=== PATIENT | female | born 1945 | race Caucasian/White ===

== ENCOUNTER 2018-11-16 13:45 | Outpatient (CLI) | payer MEDICARE, MEDICAID | END 2018-11-16 23:59 | disposition home health service (06) | LOC: WOU 13:45 | PROVIDERS: ATTEND Surgery | PROC: 0HB1XZX Excision of Face Skin, External Approach, Diagnostic (ICD-10-PCS; principal; 2018-11-16) | DX: L03.213 Periorbital cellulitis (principal); R22.0 Localized swelling, mass and lump, head; R26.2 Difficulty in walking, not elsewhere classified; R29.3 Abnormal posture; I48.91 Unspecified atrial fibrillation; M81.0 Age-related osteoporosis without current pathological fracture; G40.909 Epilepsy, unspecified, not intractable, without status epilepticus; E03.9 Hypothyroidism, unspecified; Z86.718 Personal history of other venous thrombosis and embolism; Z79.899 Other long term (current) drug therapy | CPT/HCPCS: 11106; 88305; A6402; J3490 ==

== ENCOUNTER 2018-12-13 16:31 | Inpatient (IN) | payer MEDICARE, MEDICAID ==
[~2018-12-13] VITALS: Ht 177.8 cm; Wt 88.5 kg
[2018-12-13 16:55] LABS: BASOPHILS % (AUTO) 0.7 % (0.0-2.0); EOSINOPHILS % (AUTO) 3.9 % (0.0-6.0); HEMATOCRIT 41 % (33-45); HEMOGLOBIN 13.6 g/dL (11.5-14.8); LYMPHOCYTES # (AUTO) 1.2 /CMM (0.8-4.8); LYMPHOCYTES % (AUTO) 22.1 % (20.0-44.0); MEAN CORPUSCULAR HGB CONC 33 g/dl (31.0-36.0); MEAN CORPUSCULAR VOLUME 93 fL (82-100); MONOCYTES # (AUTO) 0.4 /CMM (0.1-1.30); NEUTROPHILS # (AUTO) 3.5 /CMM (1.8-8.9); NEUTROPHILS % (AUTO) 65.3 % (43.0-81.0); PLATELET COUNT (AUTO) 179 /CMM (150-450); RED BLOOD CELL COUNT(AUTO) 4.42 MIL/uL (4.0-5.2); WHITE BLOOD COUNT (AUTO) 5.3 K/uL (4.3-11.0)
--- NOTE | 2018-12-13 17:00 | NUR ---
PT IGNACIA FROM [facility] FOR R EYE SKIN CA; POSSIBLE SURGERY IN AM; PT [id number], -SOB, NAD NOTED, PT ON MONITOR, PT TO BED 15, VSS, PENDING MD HENRIQUEZ
[2018-12-13 17:03] LABS: CARBON DIOXIDE 31 mmol/L (21-32); CHLORIDE 107 mmol/L (98-107); CREATININE 1.1 mg/dL (0.6-1.3); GLUCOSE 118 mg/dL (74-106); POTASSIUM 4.7 mmol/L (3.5-5.1); SODIUM SERUM 143 mmol/L (136-145); UREA NITROGEN, BLOOD 17 mg/dL (7-18)
[2018-12-13] MEDS ORDERED: MULT-213 PO (19:01)
[2018-12-13] MEDS ORDERED: AMLO10TA7 PO (19:01)
[2018-12-13] MEDS ORDERED: FOLI1TAB16 PO (19:01)
[2018-12-13] MEDS ORDERED: CHOL200026 PO (19:01)
[2018-12-13] MEDS ORDERED: LEVE500T9 PO (19:01)
[2018-12-13] MEDS ORDERED: APIX5TAB PO (19:01)
[2018-12-13] MEDS ORDERED: FAMO20TA8 PO (19:01)
[2018-12-13] MEDS ORDERED: METO100T14 PO (19:01)
[2018-12-13] MEDS ORDERED: LEVO25TA9 PO (19:01)
[2018-12-13] MEDS ORDERED: PROT946L PO (19:01)
[2018-12-13] MEDS ORDERED: ASCO500T9 PO (19:01)
--- NOTE | 2018-12-13 20:10 | NUR ---
report given to aman lay for stevenson; [facility]
[2018-12-13 20:17] VITALS: BP 133/90
--- NOTE | 2018-12-13 20:17 | NUR ---
MS/RN NOTES RECEIVED PT. FROM ER VIA WHEELCHAIR. PT. IS AWAKE, ALERT AND ORIENTED X3. BREATHING EVEN AND UNLABORED ON ROOM AIR. NO SOB, RESPIRATORY DISTRESS OR COMPLAINTS OF PAIN NOTED AT THIS TIME. ORIENTED PT. TO ROOM. PT. WITH RIGHT HAND 20 GAUGE IV SALINE LOCK PRESENT, PATENT AND INTACT. PT. WILL BE NPO AFTER MIDNIGHT PENDING RESECTION OF RIGHT NASAL MASS WITH SKIN GRAFT RECONSTRUCTION IN THE MORNING. BED LOCKED AND IN LOWEST POSITION, SIDE RAILS UP X3, BED ALARM ON, CALL LIGHT WITHIN REACH, WILL CONTINUE TO MONITOR.
[2018-12-14] MEDS: IV D5/ 0.9% NACL 1,000 ML IV PRN ×2 (00:10→16:07)
[2018-12-14 06:21] LABS: BASOPHILS % (AUTO) 0.5 % (0.0-2.0); EOSINOPHILS % (AUTO) 3.8 % (0.0-6.0); HEMATOCRIT 41 % (33-45); HEMOGLOBIN 13.6 g/dL (11.5-14.8); LYMPHOCYTES # (AUTO) 1.1 /CMM (0.8-4.8); LYMPHOCYTES % (AUTO) 20.7 % (20.0-44.0); MEAN CORPUSCULAR HGB CONC 33 g/dl (31.0-36.0); MEAN CORPUSCULAR VOLUME 93 fL (82-100); MONOCYTES # (AUTO) 0.5 /CMM (0.1-1.30); MONOCYTES % (AUTO) 9.4 % (2.0-12.0); NEUTROPHILS # (AUTO) 3.5 /CMM (1.8-8.9); NEUTROPHILS % (AUTO) 65.6 % (43.0-81.0); PLATELET COUNT (AUTO) 153 /CMM (150-450); RED BLOOD CELL COUNT(AUTO) 4.44 MIL/uL (4.0-5.2); WHITE BLOOD COUNT (AUTO) 5.3 K/uL (4.3-11.0)
[2018-12-14 06:49] LABS: CALCIUM, SERUM 8.4 mg/dL (8.5-10.1); CARBON DIOXIDE 30 mmol/L (21-32); CHLORIDE 109 mmol/L (98-107); CREATININE 0.9 mg/dL (0.6-1.3); GLUCOSE 104 mg/dL (74-106); PHOSPHORUS 4.1 mg/dL (2.5-4.9); SODIUM SERUM 146 mmol/L (136-145); UREA NITROGEN, BLOOD 12 mg/dL (7-18)
--- NOTE | 2018-12-14 06:52 | NUR ---
MS/RN NOTES PT. IS LYING IN BED RESTING. BREATHING EVEN AND UNLABORED ON ROOM AIR. NO SOB, RESPIRATORY DISTRESS OR COMPLAINTS OF PAIN NOTED AT THIS TIME. PT. WITH RIGHT HAND 20 GAUGE PERIPHERAL IV PRESENT, PATENT AND INTACT ADMINISTERING TO PT. D5NS @ 70 ML/HR. PT. REMAINS NPO SINCE MIDNIGHT PENDING SURGERY TODAY. CONSENT AND CHECKLIST SIGNED AND PLACED IN PT. CHART. ALL PT. NEEDS MET. BED LOCKED AND IN LOWEST POSITION, SIDE RAILS UP X3, BED ALARM ON, CALL LIGHT WITHIN REACH, WILL ENDORSE TO DAYSHIFT NURSE FOR CONTINUITY OF CARE.
--- NOTE | 2018-12-14 07:05 | NUR ---
MS/RN NOTES PT. LEFT THE FLOOR IN STABLE CONDITION TO OPERATING ROOM FOR PROCEDURE VIA BED ACCOMPANIED BY OR STAFF.
--- NOTE | 2018-12-14 07:15 | NUR ---
MS/RN NOTE RECEIVED REPORT FROM MOTION STUDY ENGINEER BUT THE PATIENT WAS IN OR.
[2018-12-14] MEDS ORDERED: BUPIVACAINE 0.5 % PF 150 MG/30 ML VIAL ONE (07:29)
[2018-12-14] MEDS ORDERED: LIDOCAINE 1%-EPI 1:100,000 20 ML VIAL ONE (07:30)
[2018-12-14] MEDS ORDERED: MIDAZOLAM HCL 2 MG/2ML VIAL ONE (08:38)
[2018-12-14] MEDS ORDERED: FENTANYL PF 100MCG/2ML AMPUL ONE (08:38)
[2018-12-14] MEDS ORDERED: FAMOTIDINE/PF INJ 20 MG/2 ML VIAL IV ONE (08:39)
[2018-12-14] MEDS ORDERED: SUCCINYLCHOLINE CHLORIDE 20 MG/ML VIAL ONE (08:39)
[2018-12-14] MEDS ORDERED: LANOLIN/MIN OIL/PETROLAT,WHT 3.5 GM TUBE ONE (09:02)
--- NOTE | 2018-12-14 10:30 | NUR ---
MS/RN NOTE THE PATIENT IS RECEIVED FROM OR IN BED. PATIENT ALERT AND ORIENTED X4. IN ROOM AIR AND SATURATION IS AT 97%. DENIES SOB. RESPIRATION REGULAR AND UNLABORED. DENIES PAIN. THE PATIENT IS IN NO APPARENT DISTRESS. NOTED SUTURES ON RIGHT SITE OF THE NOSE WHERE RESECTION OF NASAL MASS WAS DONE. ALSO, NOTED DRESSING ON RIGHT UPPER CHEST WHICH IS THE GRAFT SITE. THE SITES WITH NO BLEEDING AND NO S/S INFECTION. RIGHT HAND G 20 PATENT AND SALINE LOCKED. BED LOW AND LOCKED. SIDE RAILS UP X3. CALL LIGHT WITHIN REACH. WILL CONTINUE TO MONITOR.
[2018-12-14] MEDS: AMLODIPINE BESYLATE 10 MG TABLET PO SCH (11:00)
[2018-12-14] MEDS ORDERED: ACET-2605 PO (11:27)
[2018-12-14] MEDS ORDERED: ACET-868 PO (11:27)
[2018-12-14] MEDS: FAMOTIDINE (20 MG) 20 MG TABLET PO SCH ×2 (11:55→16:07)
[2018-12-14] MEDS: LEVOTHYROXINE SODIUM 25 MCG TABLET PO SCH (11:55)
[2018-12-14] MEDS: LEVETIRACETAM (250 MG) 250 MG TABLET PO SCH ×2 (11:55→20:42)
[2018-12-14] MEDS: FOLIC ACID 1 MG TABLET PO SCH (11:55)
[2018-12-14] MEDS: ASCORBIC ACID 500 MG TABLET PO SCH ×2 (11:56→16:07)
[2018-12-14] MEDS ORDERED: CT SWABBABLE VALVE TRANS SET 1 EA INFUS.SET MC ONE (15:28)
[2018-12-14] MEDS ORDERED: IOHEXOL-350 100 ML VIAL IV ONE (15:28)
[2018-12-14] MEDS ORDERED: IV NS 0.9% 250 ML IV ONE (15:28)
--- NOTE | 2018-12-14 15:34 | NUR ---
Patient is alert and pleasant, resides at [facility] , on bedhold x7days. She requires assistance with adl's and mobility. Current dc plan is to return to SNF Addendum: 12/14/18 at 1535 by NIK MATHEWS RN Amended: Links added.
[2018-12-14] MEDS ORDERED: APIXABAN 5 MG TABLET PO SCH (17:00)
--- NOTE | 2018-12-14 18:21 | NUR ---
MS/RN NOTE THE PATIENT IS ALERT AND ORIENTED X4. IN ROOM AIR AND SATURATION IS AT 97%. DENIES SOB. RESPIRATION REGULAR AND UNLABORED. DENIES PAIN. THE PATIENT IN NO APPARENT DISTRESS. RIGHT HAND G 20 PATENT AND D5NS INFUSING AT 70ML/HR AND NO S/S INFILTRATION NOTED. RAC G 20 PATENT AND SALINE LOCKED. BED LOW AND LOCKED. SIDE RAILS UP X3. CALL LIGHT WITHIN REACH. WILL ENDORSE TO EXPLOITATION ANALYST.
--- NOTE | 2018-12-14 19:12 | NUR ---
MS/RN NOTES RECEIVED PT. LYING IN BED. PT. IS AWAKE, ALERT AND ORIENTED X3. BREATHING EVEN AND UNLABORED ON ROOM AIR. NO SOB, RESPIRATORY DISTRESS OR COMPLAINTS OF PAIN NOTED AT THIS TIME. PT. WITH RIGHT HAND 20 GAUGE IV SALINE LOCK PRESENT, PATENT AND INTACT. PT. WITH RIGHT AC 20 GAUGE PERIPHERAL IV PRESENT, PATENT AND INTACT ADMINISTERING TO PT. D5 NS @ 70 ML/HR. PT. WITH POST OP RIGHT NASAL DRESSING PRESENT, CLEAN, DRY AND INTACT. BED LOCKED AND IN LOWEST POSITION, SIDE RAILS UP X3, BED ALARM ON, CALL LIGHT WITHIN REACH, WILL CONTINUE TO MONITOR.
[2018-12-14 20:15] VITALS: BP 104/66
[2018-12-14] MEDS: ENOXAPARIN SODIUM 100 MG/ML DISP.SYRIN SQ SCH (20:43)
[2018-12-14] MEDS ORDERED: ENOXAPARIN SODIUM 80 MG/0.8 ML DISP.SYRIN SQ SCH (21:00)
[2018-12-15 06:22] LABS: BASOPHILS % (AUTO) 0.7 % (0.0-2.0); EOSINOPHILS % (AUTO) 2.4 % (0.0-6.0); HEMATOCRIT 38 % (33-45); HEMOGLOBIN 12.6 g/dL (11.5-14.8); LYMPHOCYTES # (AUTO) 0.9 /CMM (0.8-4.8); LYMPHOCYTES % (AUTO) 18.6 % (20.0-44.0); MEAN CORPUSCULAR HGB CONC 34 g/dl (31.0-36.0); MEAN CORPUSCULAR VOLUME 93 fL (82-100); MONOCYTES # (AUTO) 0.4 /CMM (0.1-1.30); MONOCYTES % (AUTO) 8.4 % (2.0-12.0); NEUTROPHILS # (AUTO) 3.5 /CMM (1.8-8.9); NEUTROPHILS % (AUTO) 69.9 % (43.0-81.0); PLATELET COUNT (AUTO) 145 /CMM (150-450); RED BLOOD CELL COUNT(AUTO) 4.04 MIL/uL (4.0-5.2); WHITE BLOOD COUNT (AUTO) 5.1 K/uL (4.3-11.0)
[2018-12-15 06:31] LABS: ALANINE AMINOTRANSFERASE 15 U/L (12-78); ALBUMIN 2.9 g/dL (3.4-5.0); ALKALINE PHOSPHATASE 60 U/L (46-116); ASPARTATE AMINOTRANSFERASE 11 U/L (15-37); BILIRUBIN,TOTAL 0.5 mg/dL (0.2-1.0); CALCIUM, SERUM 8.2 mg/dL (8.5-10.1); CARBON DIOXIDE 29 mmol/L (21-32); CHLORIDE 107 mmol/L (98-107); GLUCOSE 90 mg/dL (74-106); MAGNESIUM 1.9 mg/dL (1.8-2.4); PHOSPHORUS 4.3 mg/dL (2.5-4.9); SODIUM SERUM 142 mmol/L (136-145); TOTAL PROTEIN, SERUM 6.1 g/dL (6.4-8.2); UREA NITROGEN, BLOOD 13 mg/dL (7-18)
--- NOTE | 2018-12-15 07:21 | NUR ---
MS/RN NOTES PT. IS LYING IN BED. PT. IS AWAKE, ALERT AND ORIENTED X3. BREATHING EVEN AND UNLABORED ON ROOM AIR. NO SOB, RESPIRATORY DISTRESS OR COMPLAINTS OF PAIN NOTED AT THIS TIME. PT. WITH RIGHT HAND 20 GAUGE IV SALINE LOCK PRESENT, PATENT AND INTACT. PT. WITH RIGHT AC 20 GAUGE PERIPHERAL IV PRESENT, PATENT AND INTACT ADMINISTERING TO PT. D5 NS @ 70 ML/HR. PT. WITH POST OP RIGHT NASAL DRESSING PRESENT, CLEAN, DRY AND INTACT. PT. WITH RIGHT CHEST WALL SKIN GRAFT SITE DRESSING PRESENT, CLEAN, DRY AND INTACT. ALL PT. NEEDS MET. BED LOCKED AND IN LOWEST POSITION, SIDE RAILS UP X3, BED ALARM ON, CALL LIGHT WITHIN REACH, WILL ENDORSE TO DAYSHIFT NURSE FOR CONTINUITY OF CARE.
--- NOTE | 2018-12-15 07:44 | NUR ---
RN OPENING NOTES PT AWAKE AND RESTING IN BED. PT EATING BREAKFAST. NO COMPLAINTS OF PAIN, SOB OR DISTRESS AT THIS TIME. SUTURES INTACT AND NO SIGNS OF INFECTION AT THIS TIME. PT HAS A RIGHT HAND #20 IV INTACT AND RUNNING D5NS@70 ML/HR, AND RIGHT AC #20 INTACT. SAFETY PRECAUTIONS IN PLACE, BED IN LOWEST LOCKED POSITION, X2 SIDE RAILS UP AND CALL LIGHT WITHIN REACH. WILL CONTINUE TO MONITOR.
[2018-12-15 08:00] VITALS: BP 102/61
[2018-12-15] MEDS: LEVETIRACETAM (250 MG) 250 MG TABLET PO SCH ×2 (08:15→20:15)
[2018-12-15] MEDS: LEVOTHYROXINE SODIUM 25 MCG TABLET PO SCH (08:15)
[2018-12-15] MEDS: ASCORBIC ACID 500 MG TABLET PO SCH ×2 (08:15→16:25)
[2018-12-15] MEDS: FOLIC ACID 1 MG TABLET PO SCH (08:15)
[2018-12-15] MEDS: MULTIVIT W/MINERALS 1 TAB TABLET PO SCH (08:15)
[2018-12-15] MEDS: FAMOTIDINE (20 MG) 20 MG TABLET PO SCH ×2 (08:15→16:25)
[2018-12-15] MEDS: AMLODIPINE BESYLATE 10 MG TABLET PO SCH (08:16)
[2018-12-15] MEDS: ENOXAPARIN SODIUM 100 MG/ML DISP.SYRIN SQ SCH ×2 (08:19→20:16)
[2018-12-15 16:00] VITALS: BP 106/73
--- NOTE | 2018-12-15 18:29 | NUR ---
RN CLOSING NOTES PT AWAKE AND RESTING IN BED. PT TRANSFERRED FROM [facility] WITH ALL BELONGINGS. NO COMPLAINTS OF PAIN, SOB OR DISTRESS DURING SHIFT. SUTURES INTACT AND NO SIGNS OF INFECTION NOTED DURING SHIFT. PT HAS A RIGHT HAND #20 IV INTACT AND RUNNING D5NS@70 ML/HR, AND RIGHT AC #20 INTACT. SAFETY PRECAUTIONS IN PLACE, BED IN LOWEST LOCKED POSITION, X2 SIDE RAILS UP AND CALL LIGHT WITHIN REACH. WILL ENDORSE TO HOUSEHOLD COORDINATOR NURSE FOR CONTINUITY OF CARE.
--- NOTE | 2018-12-15 20:11 | NUR ---
MS/RN PATIENT IS AWAKE, ALERT, ORIENTED, COMFORTABLE, NO C/O PAIN, NO DISTRESS NOTED, CALL LIGHT IN REACH. PER PATIENT SHE DOES NOT NEED HELP WITH AMBULATION. WILL MONITOR.
[2018-12-15 20:27] VITALS: BP 131/87
--- NOTE | 2018-12-15 22:10 | NUR ---
MS/TELE/RN PATIENT IS SLEEPING AT THIS TIME, APPEAR COMFORTABLE, BREATHING EVEN AND UNLABORED, CALL LIGHT IN REACH. WILL CONTINUE TO MONITOR.
[2018-12-16] MEDS: IV D5/ 0.9% NACL 1,000 ML IV PRN (01:55)
--- NOTE | 2018-12-16 06:21 | NUR ---
MS/TELE/RN PATIENT IS SLEEPING AT THIS TIME, APPEAR COMFORTABLE, NO SIGNS OF DISTRESS NOTED, CALL LIGHT IN REACH. ALL NEEDS ATTENDED AT THIS TIME, WILL CONTINUE TO MONITOR.
--- NOTE | 2018-12-16 07:30 | NUR ---
MS RN OPENING NOTES RECEIVED PT SITTING UPRIGHT IN BED, RESTING COMFORTABLY. PT IS A/O X3, AFEBRILE. RESPIRATIONS ARE EVEN AND UNLABORED, NOT IN ANY ACUTE DISTRESS NOTED. PT DENIES ANY PAIN AT THIS TIME, NO C/O SOB, N/V. IV SITE TO RAC INTACT, NO INFILTRATION NOTED. DRESSING KEPT CLEAN AND DRY. SAFETY MEASURES ARE IN PLACE. WILL CONTINUE TO MONITOR THROUGHOUT SHIFT FOR CONTINUITY OF CARE.
[2018-12-16 08:00] VITALS: BP 121/76
[2018-12-16 08:05] VITALS: BP 121/76
[2018-12-16] MEDS: LEVETIRACETAM (250 MG) 250 MG TABLET PO SCH (08:05)
[2018-12-16] MEDS: FAMOTIDINE (20 MG) 20 MG TABLET PO SCH (08:05)
[2018-12-16] MEDS: MULTIVIT W/MINERALS 1 TAB TABLET PO SCH (08:05)
[2018-12-16] MEDS: ASCORBIC ACID 500 MG TABLET PO SCH (08:05)
[2018-12-16] MEDS: FOLIC ACID 1 MG TABLET PO SCH (08:05)
[2018-12-16] MEDS: LEVOTHYROXINE SODIUM 25 MCG TABLET PO SCH (08:05)
[2018-12-16] MEDS: AMLODIPINE BESYLATE 10 MG TABLET PO SCH (08:05)
[2018-12-16] MEDS: ENOXAPARIN SODIUM 100 MG/ML DISP.SYRIN SQ SCH (08:06)
--- NOTE | 2018-12-16 14:45 | NUR ---
MS CAFETERIA TABLE ATTENDANT NOTE PT DISCHARGED BACK TO [facility] VIA [facility] ACCOMPANIED BY EMT PERSONNEL. PT IS A/O X4, AFEBRILE. RESPIRATIONS ARE EVEN AND UNLABORED, NOT IN ANY ACUTE DISTRESS NOTED. PUPILS ARE REACTIVE TO LIGHT, BILATERAL HAND EXAMINATION PROCTOR ARE STRONG AND EQUAL. DENIES ANY PAIN AT THIS TIME, NO C/O SOB, N/V. ABDOMEN IS SOFT AND NONDISTENDED, BOWEL SOUNDS ARE PRESENT IN ALL 4 QUADRANTS UPON AUSCULTATION. DENIES ANY BLADDER DISCOMFORT. PICTURES TAKEN TO RIGHT NOSE, BLE, BILAT FOOT, BUTTOCKS AND PLACED IN CHART. RIGHT UPPER CHEST WAS COVERED WITH DRESSING. PT IS AMBULATORY WITH ASSIST. EXPLAINED DISCHARGE PAPERWORK TO PT WITH VERBAL AND WRITTEN UNDERSTANDING. SPOKE W/ RN SADIE FROM [facility] FOR REPORT. PT LEFT WITH ALL BELONGINGS AND IN STABLE CONDITION.
== END 2018-12-16 14:45 | DRG 577 ==
LOC: ER 16:42 → MEDSG2 18:15 → MED 12-15 17:53
PROVIDERS: ADMIT Internal Medicine Nephrology; ATTEND Internal Medicine Nephrology
PROC: 0HR1X73 Replacement of Face Skin with Autologous Tissue Substitute, Full Thickness, External Approach (ICD-10-PCS; principal; 2018-12-14)
PROC: 0HB5XZZ Excision of Chest Skin, External Approach (ICD-10-PCS; 2018-12-14)
DX: C44.311 Basal cell carcinoma of skin of nose (principal); J90 Pleural effusion, not elsewhere classified; I82.532 Chronic embolism and thrombosis of left popliteal vein; E03.9 Hypothyroidism, unspecified; I10 Essential (primary) hypertension; G40.909 Epilepsy, unspecified, not intractable, without status epilepticus; I48.2 Chronic atrial fibrillation; K21.9 Gastro-esophageal reflux disease without esophagitis; Z79.01 Long term (current) use of anticoagulants; R00.1 Bradycardia, unspecified; F09 Unspecified mental disorder due to known physiological condition; C44.1122 Basal cell carcinoma of skin of right lower eyelid, including canthus
CPT/HCPCS: 36415; 71045-TC; 80048-TC; 80053-TC; 82962-TC; 83735-TC; 84100-TC; 85025-TC; 85730-TC; 87081-TC; 88305-TC; 93307-TC; 93970-TC; A4217; A4338; A6402; G0378; J0330; J0690; J1650; J2250; J2405; J2704; J2765; J3010; J3490; J7042; J7050; Q9967